=== PATIENT | male | born 1965 | race Caucasian/White ===

== ENCOUNTER 2017-04-09 09:20 | Observation (INO) | payer OTHER ==
[~2017-04-09] VITALS: Ht 190.5 cm; Wt 116.1 kg
[2017-04-09 10:34] LABS: MCH 30.5 PG (29.0-34.0); MCHC 34.2 G/DL (30.0-36.0); MCV 88.9 FL (86-99); MEAN PLAT.VOLUME 9.4 uM^3 (9.0-12.4); PLATELET COUNT 72 K/uL (156-360); RBC DIS.WIDTH-CV 17.4 % (11.8-14.6); RED BLOOD COUNT 3.71 M/uL (4.00-5.50); WHITE BLOOD COUNT 7.7 K/uL (4.1-10.2)
[2017-04-09 10:49] LABS: CHLORIDE 96 mEq/L (99-109); POTASSIUM 3.4 mEq/L (3.7-5.4); SODIUM 129 mEq/L (136-147)
[2017-04-09 10:50] LABS: GLUCOSE 114 mg/dL (70-99)
[2017-04-09 10:52] LABS: ANION GAP 8 MEQ/L (2-14)
[2017-04-09 10:55] LABS: UREA NITROGEN (BUN) 11 mg/dL (9-23)
[2017-04-09 10:57] LABS: GFR ESTIMATE (CALCULATED) > 59 mL/min/ (58.99-99999)
[2017-04-09 11:58] LABS: TROP-I INTERPRETATION NEGATIVE; TROPONIN-I < 0.01 ng/mL (0.0-0.30)
[2017-04-09 14:17] LABS: INTER. NORMALIZED RATIO 2.4
[2017-04-09 14:18] LABS: PTT 42.9 SEC (25-37)
[2017-04-09 15:58] LABS: ALKALINE PHOSPHATASE 128 IU/L (3-129)
[2017-04-09 16:01] LABS: DIRECT BILIRUBIN 2.9 mg/dL (0.0-0.3)
[2017-04-09] MEDS ORDERED: ZOFRAN ODT4 MG PO (16:22)
[2017-04-09] MEDS ORDERED: LASIX80 MG PO (16:22)
[2017-04-09] MEDS ORDERED: ALDACTONE100 MG PO (16:22)
[2017-04-09] MEDS ORDERED: TUSSIN DM LIQU118 ML PO (16:23)
[2017-04-09 16:30] LABS: TYPE OF FLUID PARACENTESIS
[2017-04-09 16:55] LABS: BODY FLUID RBC'S 180 /MM^3 (0-100); BODY FLUID WBC'S 140 /MM^3 (0-500); RED CELL AREA COUNTED 18; RED CELL DILUTION 1; WBC AREA COUNTED 18; WBC DILUTION 1; WHITE CELL RAW COUNT 252
[2017-04-09 17:06] LABS: BODY FLUID EOSINOPHILS 0 % (0-25); MONO RAW COUNT 99; MONONUCLEAR WBC'S 99 %; POLY RAW COUNT 1; POLYNUCLEAR WBC'S 1 % (0-25)
[2017-04-09 17:28] VITALS: BP 101/69
[2017-04-09 20:00] VITALS: BP 114/67
[2017-04-10 00:11] VITALS: BP 93/55
[2017-04-10 03:46] VITALS: BP 82/45
[2017-04-10 05:37] LABS: HEMATOCRIT 25.9 % (38.0-50.0); MCH 30.5 PG (29.0-34.0); MCHC 34.4 G/DL (30.0-36.0); MCV 88.7 FL (86-99); RBC DIS.WIDTH-CV 17.4 % (11.8-14.6); RBC DIS.WIDTH-SD 56.7 % (39-53); RED BLOOD COUNT 2.92 M/uL (4.00-5.50); WHITE BLOOD COUNT 4.4 K/uL (4.1-10.2)
[2017-04-10 05:44] LABS: ALKALINE PHOSPHATASE 86 IU/L (3-129); ANION GAP 4 MEQ/L (2-14); CHLORIDE 97 MEQ/L (99-109); GFR ESTIMATE (CALCULATED) > 59 mL/min/ (58.99-99999); GLUCOSE 102 mg/dL (70-99); SAMPLE HEMOLYSIS CHECK 0; SAMPLE ICTERIC CHECK 2; SAMPLE LIPEMIA CHECK 0; SODIUM 129 MEQ/L (136-147); TOTAL BILIRUBIN 6.9 MG/DL (0.0-1.0); UREA NITROGEN (BUN) 11 mg/dL (9-23)
[2017-04-10 05:45] LABS: POTASSIUM 4.1 MEQ/L (3.7-5.4)
[2017-04-10 06:22] LABS: IMM.PLATELET FRACTION 1.4 (1-7); MEAN PLAT.VOLUME 9.5 uM^3 (9.0-12.4); PLAT.SUFFICIENCY VERY DECREASED
[2017-04-10 06:42] LABS: PLATELET COUNT 47 K/uL (156-360)
[2017-04-10 07:29] VITALS: BP 103/58
[2017-04-10 11:50] VITALS: BP 123/56
[2017-04-10 19:52] VITALS: BP 97/56
[2017-04-10 23:46] VITALS: BP 101/57
[2017-04-11 04:21] VITALS: BP 99/62
[2017-04-11 07:56] VITALS: BP 102/56
[2017-04-11] MEDS ORDERED: ALDACTONE100 MG PO (11:35)
[2017-04-11] MEDS ORDERED: LASIX80 MG PO (11:36)
== END 2017-04-11 12:06 | disposition home or self-care (01) ==
LOC: EME 09:20 → EDOF 13:18 → 5WEST 13:18 → EDOF 13:18 → ENRESERV 13:19 → 5WEST 16:29
PROVIDERS: Emergency Medicine; Internal Medicine
DX: R06.09 Other forms of dyspnea (principal); R18.8 Other ascites; K74.60 Unspecified cirrhosis of liver; D63.8 Anemia in other chronic diseases classified elsewhere; E87.1 Hypo-osmolality and hyponatremia; D69.59 Other secondary thrombocytopenia; I72.8 Aneurysm of other specified arteries; Z87.19 Personal history of other diseases of the digestive system; Z87.01 Personal history of pneumonia (recurrent); M79.89 Other specified soft tissue disorders; Z83.3 Family history of diabetes mellitus; D68.9 Coagulation defect, unspecified; D73.1 Hypersplenism; E87.6 Hypokalemia; J90 Pleural effusion, not elsewhere classified; Z88.5 Allergy status to narcotic agent
CPT/HCPCS: 49083; 71020; 80048; 80053; 80076; 82140; 83880; 84484; 85027; 85610; 85730; 87070; 87075; 87205; 89051; 93005; G0378; J2405; P9047; S0028

== ENCOUNTER 2017-04-14 08:25 | Emergency (ER) | payer SELFPAY ==
[~2017-04-14] VITALS: Ht 190.5 cm; Wt 108.2 kg
[~2017-04-14 08:25] MED LIST changes: -CIPRO500 MG PO; -PEPCID40 MG PO; -PROMETHAZINE HC25 M1 PO
[2017-04-14 11:19] LABS: BASOPHIL (%) 0.5 % (0-1); EOSINOPHIL (%) 1.2 % (0-5); EOSINOPHIL COUNT 0.1 K/uL (0-0.3); HEMATOCRIT 31.3 % (38.0-50.0); HEMOGLOBIN 10.8 G/DL (12.5-16.6); IMMATURE GRANULOCYTE (%) 0.5 % (0.0-0.7); LYMPHOCYTE (%) 11.1 % (15-42); LYMPHOCYTE COUNT 0.7 K/uL (1.0-2.8); MCHC 34.5 G/DL (30.0-36.0); MCV 89.9 FL (86-99); MONOCYTE (%) 13.6 % (3-12); MONOCYTE COUNT 0.8 K/uL (0-0.8); NEUTROPHIL (%) 73.1 % (45-76); NEUTROPHIL COUNT 4.3 K/uL (1.8-6.4); RBC DIS.WIDTH-CV 18.6 % (11.8-14.6); RBC DIS.WIDTH-SD 60.2 % (39-53); RED BLOOD COUNT 3.48 M/uL (4.00-5.50); WHITE BLOOD COUNT 5.9 K/uL (4.1-10.2)
[2017-04-14 11:21] LABS: PLATELET COUNT 63 K/uL (156-360)
[2017-04-14 11:25] LABS: INTER. NORMALIZED RATIO 2.1
[2017-04-14 11:27] LABS: PTT 42.4 SEC (25-37)
[2017-04-14 11:31] LABS: ALBUMIN 2.6 g/dL (3.2-4.8); CHLORIDE 98 mEq/L (99-109); SODIUM 130 mEq/L (136-147)
[2017-04-14 11:33] LABS: GLUCOSE 98 mg/dL (70-99); TOTAL PROTEIN 5.9 g/dL (6.4-8.3)
[2017-04-14 11:35] LABS: TOTAL BILIRUBIN 7.1 mg/dL (0.0-1.0)
[2017-04-14 11:37] LABS: ALKALINE PHOSPHATASE 126 IU/L (3-129); CREATININE 0.8 mg/dL (0.6-1.3); GFR ESTIMATE (CALCULATED) > 59 mL/min/ (58.99-99999)
[2017-04-14 11:38] LABS: UREA NITROGEN (BUN) 15 mg/dL (9-23)
[2017-04-14 11:39] LABS: AST (GOT) 81 IU/L (2-34)
[2017-04-14 11:40] LABS: ALT (GPT) 36 IU/L (3-49); LIPASE 21 U/L (1.0-51.0)
[2017-04-14 11:55] LABS: POTASSIUM 5.6 mEq/L (3.7-5.4)
[2017-04-14] MEDS ORDERED: CIPRO500 MG PO (13:16)
[2017-04-14] MEDS ORDERED: PROMETHAZINE HC25 M1 PO (13:20)
[2017-04-14 13:43] VITALS: BP 111/71
== END 2017-04-14 13:46 | disposition home or self-care (01) ==
LOC: EME → EDBD 08:25 → EME 13:46
PROVIDERS: Emergency Medicine
DX: R11.2 Nausea with vomiting, unspecified (principal); R18.8 Other ascites; E87.5 Hyperkalemia; K59.00 Constipation, unspecified; R00.0 Tachycardia, unspecified; K74.60 Unspecified cirrhosis of liver
CPT/HCPCS: 71020; 80053; 83690; 85025; 85610; 85730; 93005; 99281; 99285; J2405

== ENCOUNTER → 2017-04-14 | Outpatient (CLI) | payer OTHER ==
[~2017-04-14] MED LIST: ALDACTONE100 MG PO; CIPRO500 MG PO; LASIX80 MG PO; PEPCID40 MG PO; PROMETHAZINE HC25 M1 PO; TUSSIN DM LIQU118 ML PO; ZOFRAN ODT4 MG PO
== END | disposition home or self-care (01) ==
LOC: RAD 13:15
PROC: 0W9G3ZZ Drainage of Peritoneal Cavity, Percutaneous Approach (ICD-10-PCS; principal; 2017-04-14)
DX: R18.8 Other ascites (principal)
CPT/HCPCS: 49083

== ENCOUNTER 2017-04-20 12:34 | Emergency (ER) | payer OTHER ==
[~2017-04-20] VITALS: Ht 190.5 cm; Wt 110.0 kg
[~2017-04-20 12:34] MED LIST changes: +CIPRO500 MG PO; +PROMETHAZINE HC25 M1 PO
[2017-04-20 14:40] LABS: HEMOGLOBIN 11.4 G/DL (12.5-16.6); MCH 31.7 PG (29.0-34.0); MCHC 34.5 G/DL (30.0-36.0); MCV 91.7 FL (86-99); RBC DIS.WIDTH-CV 18.3 % (11.8-14.6); WHITE BLOOD COUNT 8.7 K/uL (4.1-10.2)
[2017-04-20 14:42] LABS: PLATELET COUNT 82 K/uL (156-360)
[2017-04-20 14:51] LABS: INTER. NORMALIZED RATIO 2.1
[2017-04-20 14:53] LABS: PTT 40.4 SEC (25-37)
[2017-04-20 14:54] LABS: CHLORIDE 93 mEq/L (99-109); SODIUM 127 mEq/L (136-147)
[2017-04-20 14:55] LABS: GLUCOSE 145 mg/dL (70-99)
[2017-04-20 14:59] LABS: CREATININE 0.8 mg/dL (0.6-1.3); GFR ESTIMATE (CALCULATED) > 59 mL/min/ (58.99-99999); POTASSIUM 3.7 mEq/L (3.7-5.4)
[2017-04-20 15:00] LABS: UREA NITROGEN (BUN) 17 mg/dL (9-23)
[2017-04-20 19:35] VITALS: BP 102/62
== END 2017-04-20 19:42 | disposition home or self-care (01) ==
LOC: EME 12:34
PROVIDERS: Nurse Practitioner Family
PROC: 0W9G3ZZ Drainage of Peritoneal Cavity, Percutaneous Approach (ICD-10-PCS; principal; 2017-04-20)
DX: R18.8 Other ascites (principal); D69.6 Thrombocytopenia, unspecified; E87.1 Hypo-osmolality and hyponatremia; K72.90 Hepatic failure, unspecified without coma; K74.60 Unspecified cirrhosis of liver; J90 Pleural effusion, not elsewhere classified; Z86.73 Personal history of transient ischemic attack (TIA), and cerebral infarction without residual deficits; Z88.5 Allergy status to narcotic agent
CPT/HCPCS: 49083; 71046; 80048; 85027; 85610; 85730; 93005; 99281; 99285

== ENCOUNTER 2017-04-23 22:59 | Emergency (ER) | payer SELFPAY ==
[~2017-04-23] VITALS: Ht 190.5 cm; Wt 106.6 kg
[2017-04-24 00:01] LABS: BASOPHIL (%) 0.6 % (0-1); EOSINOPHIL (%) 1.1 % (0-5); EOSINOPHIL COUNT 0.1 K/uL (0-0.3); HEMATOCRIT 30.5 % (38.0-50.0); HEMOGLOBIN 10.3 G/DL (12.5-16.6); IMMATURE GRANULOCYTE (%) 0.7 % (0.0-0.7); LYMPHOCYTE (%) 10.5 % (15-42); LYMPHOCYTE COUNT 0.8 K/uL (1.0-2.8); MCH 30.7 PG (29.0-34.0); MCHC 33.8 G/DL (30.0-36.0); MONOCYTE (%) 14.1 % (3-12); NEUTROPHIL COUNT 5.3 K/uL (1.8-6.4); PLATELET COUNT 67 K/uL (156-360); RBC DIS.WIDTH-CV 18.9 % (11.8-14.6); RBC DIS.WIDTH-SD 63.3 % (39-53); RED BLOOD COUNT 3.35 M/uL (4.00-5.50); WHITE BLOOD COUNT 7.2 K/uL (4.1-10.2)
[2017-04-24 00:09] LABS: INTER. NORMALIZED RATIO 2.3
[2017-04-24 00:13] LABS: ALBUMIN 2.2 g/dL (3.2-4.8); CHLORIDE 96 mEq/L (99-109); POTASSIUM 3.5 mEq/L (3.7-5.4); SODIUM 128 mEq/L (136-147)
[2017-04-24 00:15] LABS: GLUCOSE 141 mg/dL (70-99)
[2017-04-24 00:16] LABS: TOTAL PROTEIN 4.9 g/dL (6.4-8.3)
[2017-04-24 00:19] LABS: ALKALINE PHOSPHATASE 139 IU/L (3-129); CREATININE 0.8 mg/dL (0.6-1.3); GFR ESTIMATE (CALCULATED) > 59 mL/min/ (58.99-99999)
[2017-04-24 00:20] LABS: UREA NITROGEN (BUN) 18 mg/dL (9-23)
[2017-04-24 00:21] LABS: AST (GOT) 53 IU/L (2-34)
[2017-04-24 00:22] LABS: ALT (GPT) 31 IU/L (3-49)
[2017-04-24 00:24] LABS: TROP-I INTERPRETATION NEGATIVE; TROPONIN-I < 0.01 ng/mL (0.0-0.30)
[2017-04-24] MEDS ORDERED: PEPCID40 MG PO (01:43)
[2017-04-24 02:45] VITALS: BP 98/67
== END 2017-04-24 02:45 | disposition home or self-care (01) ==
LOC: EME → EDBD 22:59 → EME 22:59
PROVIDERS: Emergency Medicine Emergency Medical Services
DX: R07.89 Other chest pain (principal); K74.60 Unspecified cirrhosis of liver; R18.8 Other ascites; Z86.73 Personal history of transient ischemic attack (TIA), and cerebral infarction without residual deficits; Z88.5 Allergy status to narcotic agent
CPT/HCPCS: 71046; 80053; 84484; 85025; 85610; 93005; 99281; 99285

== ENCOUNTER 2017-04-26 12:13 | Emergency (ER) | payer OTHER ==
[~2017-04-26] VITALS: Ht 190.5 cm; Wt 110.9 kg
[~2017-04-26 12:13] MED LIST changes: +PEPCID40 MG PO
[2017-04-26 12:59] LABS: BASOPHIL (%) 0.8 % (0-1); BASOPHIL COUNT 0.1 K/uL (0-0.1); EOSINOPHIL (%) 1.1 % (0-5); EOSINOPHIL COUNT 0.1 K/uL (0-0.3); HEMATOCRIT 32.6 % (38.0-50.0); HEMOGLOBIN 11.6 G/DL (12.5-16.6); IMMATURE GRANULOCYTE (%) 0.9 % (0.0-0.7); LYMPHOCYTE (%) 10.7 % (15-42); MCHC 35.6 G/DL (30.0-36.0); MCV 90.1 FL (86-99); MONOCYTE COUNT 1.4 K/uL (0-0.8); NEUTROPHIL (%) 70.5 % (45-76); NEUTROPHIL COUNT 6.2 K/uL (1.8-6.4); PLATELET COUNT 81 K/uL (156-360); RBC DIS.WIDTH-CV 18.7 % (11.8-14.6); RBC DIS.WIDTH-SD 61.5 % (39-53); RED BLOOD COUNT 3.62 M/uL (4.00-5.50); WHITE BLOOD COUNT 8.9 K/uL (4.1-10.2)
[2017-04-26 13:04] LABS: INTER. NORMALIZED RATIO 1.9
[2017-04-26 13:07] LABS: PTT 37.2 SEC (25-37)
[2017-04-26 13:09] LABS: ALBUMIN 2.5 g/dL (3.2-4.8); CHLORIDE 95 mEq/L (99-109); POTASSIUM 3.6 mEq/L (3.7-5.4); SODIUM 128 mEq/L (136-147)
[2017-04-26 13:10] LABS: MAGNESIUM 1.7 mg/dL (1.3-2.7)
[2017-04-26 13:12] LABS: GLUCOSE 118 mg/dL (70-99); TOTAL PROTEIN 5.5 g/dL (6.4-8.3)
[2017-04-26 13:14] LABS: TOTAL BILIRUBIN 5.7 mg/dL (0.0-1.0)
[2017-04-26 13:15] LABS: SERUM ETHYL ALCOHOL < 10 mg/dL
[2017-04-26 13:16] LABS: ALKALINE PHOSPHATASE 220 IU/L (3-129); CREATININE 0.8 mg/dL (0.6-1.3); GFR ESTIMATE (CALCULATED) > 59 mL/min/ (58.99-99999)
[2017-04-26 13:17] LABS: AST (GOT) 64 IU/L (2-34); UREA NITROGEN (BUN) 17 mg/dL (9-23)
[2017-04-26 13:19] LABS: ALT (GPT) 36 IU/L (3-49)
[2017-04-26 22:21] VITALS: BP 101/47
== END 2017-04-26 22:23 | disposition home or self-care (01) ==
LOC: EME 12:13
PROVIDERS: Emergency Medicine
PROC: 0W9G3ZZ Drainage of Peritoneal Cavity, Percutaneous Approach (ICD-10-PCS; principal; 2017-04-26)
DX: R18.8 Other ascites (principal); R06.00 Dyspnea, unspecified; K74.60 Unspecified cirrhosis of liver; R11.0 Nausea; R00.0 Tachycardia, unspecified; E87.1 Hypo-osmolality and hyponatremia
CPT/HCPCS: 49083; 80053; 81003; 83735; 85025; 85610; 85730; 99281; 99285; G0480; P9047

== ENCOUNTER → 2017-05-01 | Outpatient (CLI) | payer OTHER ==
[~2017-05-01] MED LIST changes: +OMEPRAZOLE20 MG PO
== END | disposition home or self-care (01) ==
LOC: RAD 07:11
PROC: 0W9G3ZZ Drainage of Peritoneal Cavity, Percutaneous Approach (ICD-10-PCS; principal; 2017-05-01)
DX: R18.8 Other ascites (principal); R06.02 Shortness of breath
CPT/HCPCS: 49083

== ENCOUNTER 2017-05-05 15:47 | Observation (INO) | payer OTHER ==
[~2017-05-05] VITALS: Ht 190.5 cm; Wt 108.4 kg
[~2017-05-05 15:47] MED LIST changes: -OMEPRAZOLE20 MG PO
[2017-05-05 16:46] LABS: HEMOGLOBIN 11.9 G/DL (12.5-16.6); MCH 32.9 PG (29.0-34.0); MCHC 36.1 G/DL (30.0-36.0); MCV 91.2 FL (86-99); PLATELET COUNT 82 K/uL (156-360); RBC DIS.WIDTH-SD 56.8 % (39-53); RED BLOOD COUNT 3.62 M/uL (4.00-5.50); WHITE BLOOD COUNT 9.7 K/uL (4.1-10.2)
[2017-05-05 16:58] LABS: INTER. NORMALIZED RATIO 1.9
[2017-05-05 17:00] LABS: ALBUMIN 2.7 g/dL (3.2-4.8); CHLORIDE 94 mEq/L (99-109); POTASSIUM 4.3 mEq/L (3.7-5.4); SODIUM 123 mEq/L (136-147)
[2017-05-05 17:01] LABS: PTT 36.6 SEC (25-37)
[2017-05-05 17:03] LABS: GLUCOSE 114 mg/dL (70-99); TOTAL PROTEIN 5.7 g/dL (6.4-8.3)
[2017-05-05 17:04] LABS: TOTAL BILIRUBIN 6.3 mg/dL (0.0-1.0)
[2017-05-05 17:06] LABS: ALKALINE PHOSPHATASE 147 IU/L (3-129); CREATININE 0.8 mg/dL (0.6-1.3); GFR ESTIMATE (CALCULATED) > 59 mL/min/ (58.99-99999)
[2017-05-05 17:07] LABS: UREA NITROGEN (BUN) 17 mg/dL (9-23)
[2017-05-05 17:08] LABS: AST (GOT) 58 IU/L (2-34)
[2017-05-05 17:09] LABS: ALT (GPT) 40 IU/L (3-49)
[2017-05-05] MEDS ORDERED: OMEPRAZOLE20 MG PO (19:42)
[2017-05-05 22:17] VITALS: BP 104/58
[2017-05-06 03:45] VITALS: BP 98/58
[2017-05-06 07:07] LABS: BASOPHIL (%) 1.2 % (0-1); BASOPHIL COUNT 0.1 K/uL (0-0.1); EOSINOPHIL (%) 2.4 % (0-5); EOSINOPHIL COUNT 0.2 K/uL (0-0.3); HEMATOCRIT 27.9 % (38.0-50.0); HEMOGLOBIN 9.9 G/DL (12.5-16.6); IMMATURE GRANULOCYTE (%) 1.2 % (0.0-0.7); LYMPHOCYTE (%) 14.6 % (15-42); MCH 32.6 PG (29.0-34.0); MCHC 35.5 G/DL (30.0-36.0); MCV 91.8 FL (86-99); MONOCYTE (%) 16.7 % (3-12); MONOCYTE COUNT 1.1 K/uL (0-0.8); NEUTROPHIL (%) 63.9 % (45-76); NEUTROPHIL COUNT 4.3 K/uL (1.8-6.4); PLATELET COUNT 58 K/uL (156-360); RBC DIS.WIDTH-CV 17.2 % (11.8-14.6); RBC DIS.WIDTH-SD 58.3 % (39-53); RED BLOOD COUNT 3.04 M/uL (4.00-5.50); WHITE BLOOD COUNT 6.7 K/uL (4.1-10.2)
[2017-05-06 07:27] LABS: ALKALINE PHOSPHATASE 105 IU/L (3-129); ALT (GPT) 26 IU/L (3-49); AST (GOT) 41 IU/L (2-34); CHLORIDE 95 MEQ/L (99-109); CREATININE 0.8 MG/DL (0.6-1.3); GFR ESTIMATE (CALCULATED) > 59 mL/min/ (58.99-99999); GLUCOSE 113 mg/dL (70-99); POTASSIUM 4.3 MEQ/L (3.7-5.4); SODIUM 125 MEQ/L (136-147); TOTAL BILIRUBIN 5.2 MG/DL (0.0-1.0); TOTAL PROTEIN 4.5 G/DL (6.4-8.3); UREA NITROGEN (BUN) 17 mg/dL (9-23)
[2017-05-06 07:49] VITALS: BP 102/62
[2017-05-06 14:04] VITALS: BP 95/54
[2017-05-06 16:00] VITALS: BP 110/58
[2017-05-06 17:11] LABS: TYPE OF FLUID PARACENTESIS
[2017-05-06 17:13] LABS: ABSOLUTE RETICULOCYTE CT. 0.1 M/uL (0.02-0.08); IMM.RETIC FRACTION 5.1 % (3-19); RETIC HGB EQUIVALENT 37.7 (28-36); RETICULOCYTE COUNT 3.6 % (0.5-1.8)
[2017-05-06 17:30] LABS: APPEARANCE SL. HAZY-YELLOW; BODY FLUID RBC'S < 1000 /MM^3 (0-100); BODY FLUID WBC'S 146 /MM^3 (0-500)
[2017-05-06] MEDS ORDERED: CHOLESTYRAMINE P4 GM PO (17:54)
[2017-05-06 18:03] LABS: IRON 94 MCG/DL (35-150); TRANSFERRIN (TIBC) 141.4 mg/dL (215-380); TRANSFERRIN SATUR. 66 % (20-55)
[2017-05-06 18:12] LABS: FERRITIN 97 NG/ML (22-322)
[2017-05-06 18:13] LABS: BODY FLUID EOSINOPHILS 0 % (0-25); MONONUCLEAR WBC'S 94 %; POLYNUCLEAR WBC'S 6 % (0-25)
[2017-05-06] MEDS ORDERED: ALDACTONE100 MG PO (19:15)
[2017-05-06 21:17] LABS: BODY FLUID AMYLASE 12 U/L
[2017-05-06 21:47] LABS: BODY FLUID LDH 25 IU/L; BODY FLUID PROTEIN < 3.0 G/DL
== END 2017-05-06 21:19 | disposition home or self-care (01) ==
LOC: EME 15:47 → EDOF 20:32 → 5WEST 20:32 → EDOF 20:32 → ENRESERV 20:36 → 5WEST 21:38
PROVIDERS: Physician Assistant; Specialist
PROC: 0W9G3ZZ Drainage of Peritoneal Cavity, Percutaneous Approach (ICD-10-PCS; principal; 2017-05-06)
DX: K74.69 Other cirrhosis of liver (principal); R18.8 Other ascites; E87.1 Hypo-osmolality and hyponatremia; Z87.19 Personal history of other diseases of the digestive system; D64.9 Anemia, unspecified; D69.6 Thrombocytopenia, unspecified; L29.9 Pruritus, unspecified; K42.9 Umbilical hernia without obstruction or gangrene; I72.8 Aneurysm of other specified arteries; Z86.73 Personal history of transient ischemic attack (TIA), and cerebral infarction without residual deficits; Z83.3 Family history of diabetes mellitus; Z88.5 Allergy status to narcotic agent
CPT/HCPCS: 49083; 71046; 80053; 82040; 82150 91; 82607; 82728; 83540; 83615 91; 84157; 84295; 84466; 84630 90; 85025; 85027; 85046; 85610; 85730; 87205; 89051; 99281; 99285; G0378; J2405; P9045

== ENCOUNTER 2017-05-14 14:13 | Emergency (ER) | payer OTHER ==
[~2017-05-14] VITALS: Ht 190.5 cm; Wt 100.4 kg
[~2017-05-14 14:13] MED LIST changes: -OXYCODONE HCL5 MG PO
[2017-05-14 15:04] LABS: HEMATOCRIT 31.7 % (38.0-50.0); HEMOGLOBIN 11.1 G/DL (12.5-16.6); MCH 32.6 PG (29.0-34.0); MCV 93.2 FL (86-99); PLATELET COUNT 72 K/uL (156-360); RBC DIS.WIDTH-CV 16.7 % (11.8-14.6); RBC DIS.WIDTH-SD 56.7 % (39-53)
[2017-05-14 15:15] LABS: ALBUMIN 2.6 g/dL (3.2-4.8); CHLORIDE 93 mEq/L (99-109); POTASSIUM 3.7 mEq/L (3.7-5.4); SODIUM 126 mEq/L (136-147)
[2017-05-14 15:17] LABS: GLUCOSE 171 mg/dL (70-99)
[2017-05-14 15:18] LABS: TOTAL PROTEIN 5.5 g/dL (6.4-8.3)
[2017-05-14 15:19] LABS: TOTAL BILIRUBIN 5.8 mg/dL (0.0-1.0)
[2017-05-14 15:21] LABS: ALKALINE PHOSPHATASE 132 IU/L (3-129); CREATININE 0.9 mg/dL (0.6-1.3); GFR ESTIMATE (CALCULATED) > 59 mL/min/ (58.99-99999)
[2017-05-14 15:22] LABS: UREA NITROGEN (BUN) 21 mg/dL (9-23)
[2017-05-14 15:23] LABS: AST (GOT) 54 IU/L (2-34)
[2017-05-14 15:24] LABS: ALT (GPT) 37 IU/L (3-49)
[2017-05-14 16:05] LABS: TROP-I INTERPRETATION NEGATIVE; TROPONIN-I < 0.01 ng/mL (0.0-0.30)
[2017-05-14 16:33] LABS: LIPASE 44 U/L (1.0-51.0)
[2017-05-14 17:14] LABS: APPEARANCE SL.HAZY ((CLEAR)); BILIRUBIN SMALL; BLOOD NEGATIVE; COLOR AMBER ((YELLOW)); GLUCOSE (STRIP) NEGATIVE; KETONES NEGATIVE; LEUKOCYTES NEGATIVE; NITRITE NEGATIVE; PROTEIN (STRIP) NEGATIVE
[2017-05-14 17:31] LABS: BACTERIA RARE /HPF; CALCIUM OXALATE CRYSTALS 1+ /HPF; EPITHELIAL CELLS RARE /HPF; HYALINE CASTS 0-5 /LPF; MUCUS 4+ /LPF; RED BLOOD CELLS 0-5 /HPF (0-5); UCUL ADDED? NO; WHITE BLOOD CELLS 0-5 /HPF (0-5)
[2017-05-14] MEDS ORDERED: OXYCODONE HCL5 MG PO (19:00)
[2017-05-14 21:25] VITALS: BP 104/66
== END 2017-05-14 21:54 | disposition home or self-care (01) ==
LOC: EME 14:13
DX: R10.13 Epigastric pain (principal); K74.60 Unspecified cirrhosis of liver; E87.1 Hypo-osmolality and hyponatremia; R18.8 Other ascites; K21.9 Gastro-esophageal reflux disease without esophagitis; F32.9 Major depressive disorder, single episode, unspecified; Z86.73 Personal history of transient ischemic attack (TIA), and cerebral infarction without residual deficits; Z88.5 Allergy status to narcotic agent
CPT/HCPCS: 71045; 74177; 80053; 81003; 83690; 84484; 85027; 93005; 99281; 99285; J3010; J7040

== ENCOUNTER → 2017-05-14 | Outpatient (CLI) | payer OTHER ==
[~2017-05-14] MED LIST changes: +CHOLESTYRAMINE P4 GM PO; +OMEPRAZOLE20 MG PO; +OXYCODONE HCL5 MG PO; +PROTONIX40 MG PO
[2017-05-14 13:19] LABS: TYPE OF FLUID PARACENTESIS
[2017-05-14 14:29] LABS: APPEARANCE CLEAR-YELLOW; BODY FLUID EOSINOPHILS 0 % (0-25); BODY FLUID RBC'S < 1000 /MM^3 (0-100); BODY FLUID WBC'S 106 /MM^3 (0-500); MONONUCLEAR WBC'S 94 %; POLYNUCLEAR WBC'S 6 % (0-25)
== END | disposition home or self-care (01) ==
LOC: RAD 10:54
PROVIDERS: Radiology Diagnostic Radiology
PROC: 0W9G3ZZ Drainage of Peritoneal Cavity, Percutaneous Approach (ICD-10-PCS; principal; 2017-05-14)
DX: R18.8 Other ascites (principal); K74.60 Unspecified cirrhosis of liver
CPT/HCPCS: 49083; 88108; 89051

== ENCOUNTER 2017-05-19 16:34 | Emergency (ER) | payer OTHER ==
[~2017-05-19] VITALS: Ht 190.5 cm; Wt 107.2 kg
[~2017-05-19 16:34] MED LIST changes: +OXYCODONE HCL5 MG PO
[2017-05-19 20:18] VITALS: BP 100/73
[2017-05-20] MEDS ORDERED: ALDACTONE100 MG PO (08:26)
[2017-05-20] MEDS ORDERED: PROTONIX40 MG PO (08:27)
[2017-05-20] MEDS ORDERED: FUROSEMIDE80 MG PO (08:27)
== END 2017-05-19 20:18 | disposition home or self-care (01) ==
LOC: EME 16:34
DX: R06.02 Shortness of breath (principal); K74.60 Unspecified cirrhosis of liver; J90 Pleural effusion, not elsewhere classified
CPT/HCPCS: 71046; 80048; 85027; 93005; 99281; 99284

== ENCOUNTER → 2017-05-20 | Outpatient (CLI) | payer OTHER ==
[~2017-05-20] MED LIST changes: +FUROSEMIDE80 MG PO
== END | disposition home or self-care (01) ==
LOC: RAD 07:48
PROC: 0W9G3ZZ Drainage of Peritoneal Cavity, Percutaneous Approach (ICD-10-PCS; principal; 2017-05-20)
DX: R18.8 Other ascites (principal); K74.60 Unspecified cirrhosis of liver
CPT/HCPCS: 49083; P9047

== ENCOUNTER → 2017-05-27 | Outpatient (CLI) | payer OTHER | END | disposition home or self-care (01) | LOC: RAD 07:36 | PROC: 0W9G3ZZ Drainage of Peritoneal Cavity, Percutaneous Approach (ICD-10-PCS; principal; 2017-05-27) | DX: R18.8 Other ascites (principal); K74.60 Unspecified cirrhosis of liver | CPT/HCPCS: 49083; P9047 ==

== ENCOUNTER 2017-05-31 06:13 | Emergency (ER) | payer OTHER ==
[~2017-05-31] VITALS: Ht 190.5 cm; Wt 110.0 kg
[2017-05-31 08:06] LABS: HEMATOCRIT 28.6 % (38.0-50.0); HEMOGLOBIN 9.9 G/DL (12.5-16.6); MCHC 34.6 G/DL (30.0-36.0); MCV 95.3 FL (86-99); RBC DIS.WIDTH-CV 15.9 % (11.8-14.6); RBC DIS.WIDTH-SD 54.4 % (39-53); WHITE BLOOD COUNT 5.5 K/uL (4.1-10.2)
[2017-05-31 08:09] LABS: PTT 30.8 SEC (25-37)
[2017-05-31 08:14] LABS: CHLORIDE 101 mEq/L (99-109); POTASSIUM 4.6 mEq/L (3.7-5.4); SODIUM 129 mEq/L (136-147)
[2017-05-31 08:15] LABS: GLUCOSE 103 mg/dL (70-99)
[2017-05-31 08:19] LABS: CREATININE 0.7 mg/dL (0.6-1.3); GFR ESTIMATE (CALCULATED) > 59 mL/min/ (58.99-99999)
[2017-05-31 08:20] LABS: UREA NITROGEN (BUN) 12 mg/dL (9-23)
[2017-05-31 08:47] LABS: IMM.PLATELET FRACTION 1.2 (1-7); PLAT.SUFFICIENCY DECREASED
[2017-05-31 09:17] LABS: PLATELET COUNT 41 K/uL (156-360)
[2017-05-31 17:15] VITALS: BP 108/64
[2017-06-03] MEDS ORDERED: ZOFRAN4 MG PO (13:13)
== END 2017-05-31 17:15 | disposition home or self-care (01) ==
LOC: EME 06:13
PROVIDERS: Emergency Medicine
PROC: 0W9G3ZZ Drainage of Peritoneal Cavity, Percutaneous Approach (ICD-10-PCS; principal; 2017-05-31)
DX: R18.8 Other ascites (principal); R06.00 Dyspnea, unspecified; R10.9 Unspecified abdominal pain; K74.60 Unspecified cirrhosis of liver; K21.9 Gastro-esophageal reflux disease without esophagitis; F32.9 Major depressive disorder, single episode, unspecified; Z86.73 Personal history of transient ischemic attack (TIA), and cerebral infarction without residual deficits; Z88.5 Allergy status to narcotic agent
CPT/HCPCS: 49083; 80048; 85027; 85610; 85730; 99281; 99285

== ENCOUNTER → 2017-06-03 | Outpatient (CLI) | payer OTHER ==
[~2017-06-03] MED LIST changes: +ZOFRAN4 MG PO
== END | disposition home or self-care (01) ==
LOC: RAD 12:50
PROC: 0W9G3ZZ Drainage of Peritoneal Cavity, Percutaneous Approach (ICD-10-PCS; principal; 2017-06-03)
DX: R18.8 Other ascites (principal); K74.60 Unspecified cirrhosis of liver; K92.1 Melena
CPT/HCPCS: 49083

== ENCOUNTER → 2017-06-08 | Outpatient (CLI) | payer OTHER | END | disposition home or self-care (01) | LOC: RAD 07:24 | PROC: 0W9G3ZZ Drainage of Peritoneal Cavity, Percutaneous Approach (ICD-10-PCS; principal; 2017-06-08) | DX: R18.8 Other ascites (principal); K74.60 Unspecified cirrhosis of liver | CPT/HCPCS: 49083; J2405; P9047 ==

== ENCOUNTER → 2017-06-11 | Outpatient (CLI) | payer OTHER | END | disposition home or self-care (01) | LOC: RAD 06-10 13:30 | PROC: 0W9G3ZZ Drainage of Peritoneal Cavity, Percutaneous Approach (ICD-10-PCS; principal; 2017-06-11) | DX: R18.8 Other ascites (principal) | CPT/HCPCS: 49083 ==

== ENCOUNTER → 2017-06-15 | Outpatient (CLI) | payer OTHER ==
[2017-06-15 08:39] LABS: TYPE OF FLUID PERITONEAL
[2017-06-15 09:34] LABS: APPEARANCE CLEAR-YELLOW; BODY FLUID EOSINOPHILS 0 % (0-25); BODY FLUID RBC'S < 1000 /MM^3 (0-100); BODY FLUID WBC'S 131 /MM^3 (0-500); MONONUCLEAR WBC'S 95 %; POLYNUCLEAR WBC'S 5 % (0-25)
== END | disposition home or self-care (01) ==
LOC: RAD 07:34
PROVIDERS: Specialist
PROC: 0W9G3ZZ Drainage of Peritoneal Cavity, Percutaneous Approach (ICD-10-PCS; principal; 2017-06-15)
DX: R18.8 Other ascites (principal); K74.60 Unspecified cirrhosis of liver
CPT/HCPCS: 49083; 89051

== ENCOUNTER → 2017-06-18 | Outpatient (CLI) | payer OTHER | END | disposition home or self-care (01) | LOC: RAD 12:29 | PROC: 0W9G3ZZ Drainage of Peritoneal Cavity, Percutaneous Approach (ICD-10-PCS; principal; 2017-06-18) | DX: R18.8 Other ascites (principal) | CPT/HCPCS: 49083; P9047 ==

== ENCOUNTER → 2017-06-23 | Outpatient (CLI) | payer OTHER ==
[~2017-06-23] MED LIST changes: +MEPHYTON5 MG PO
== END | disposition home or self-care (01) ==
LOC: RAD 06-22 08:30
PROC: 0W9G3ZZ Drainage of Peritoneal Cavity, Percutaneous Approach (ICD-10-PCS; principal; 2017-06-23)
DX: R18.8 Other ascites (principal); K74.60 Unspecified cirrhosis of liver
CPT/HCPCS: 49083; P9047

== ENCOUNTER → 2017-06-26 | Outpatient (CLI) | payer OTHER ==
[~2017-06-26] VITALS: Ht 190.5 cm; Wt 105.0 kg
== END | disposition home or self-care (01) ==
LOC: RAD 07:25
PROC: 0W9G3ZZ Drainage of Peritoneal Cavity, Percutaneous Approach (ICD-10-PCS; principal; 2017-06-26)
DX: R18.8 Other ascites (principal); K74.60 Unspecified cirrhosis of liver
CPT/HCPCS: 49083

== ENCOUNTER → 2017-06-29 | Outpatient (CLI) | payer OTHER | END | disposition home or self-care (01) | LOC: RAD 12:39 | PROC: 0W9G3ZZ Drainage of Peritoneal Cavity, Percutaneous Approach (ICD-10-PCS; principal; 2017-06-29) | DX: R18.8 Other ascites (principal) | CPT/HCPCS: 49083; P9047 ==

== ENCOUNTER → 2017-07-02 | Outpatient (CLI) | payer OTHER | END | disposition home or self-care (01) | LOC: RAD 12:35 | PROC: 0W9G3ZZ Drainage of Peritoneal Cavity, Percutaneous Approach (ICD-10-PCS; principal; 2017-07-02) | DX: R18.8 Other ascites (principal); K74.60 Unspecified cirrhosis of liver | CPT/HCPCS: 49083; P9047 ==

== ENCOUNTER → 2017-07-06 | Outpatient (CLI) | payer OTHER | END | disposition home or self-care (01) | LOC: RAD 08:07 | PROC: 0W9G3ZZ Drainage of Peritoneal Cavity, Percutaneous Approach (ICD-10-PCS; principal; 2017-07-06) | DX: R18.8 Other ascites (principal) | CPT/HCPCS: 49083 ==

== ENCOUNTER → 2017-07-09 | Outpatient (CLI) | payer OTHER ==
[2017-07-09 13:22] LABS: TYPE OF FLUID PARACENTESIS
[2017-07-09 14:25] LABS: APPEARANCE SL. HAZY-YELLOW; BODY FLUID RBC'S 2000 /MM^3 (0-100); BODY FLUID WBC'S 139 /MM^3 (0-500)
[2017-07-09 14:29] LABS: BODY FLUID EOSINOPHILS 2 % (0-25); MONONUCLEAR WBC'S 88 %; POLYNUCLEAR WBC'S 10 % (0-25)
== END | disposition home or self-care (01) ==
LOC: RAD 12:35
PROVIDERS: Specialist
PROC: 0W9G3ZZ Drainage of Peritoneal Cavity, Percutaneous Approach (ICD-10-PCS; principal; 2017-07-09)
DX: R18.8 Other ascites (principal)
CPT/HCPCS: 49083; 88108; 89051

== ENCOUNTER → 2017-07-13 | Outpatient (CLI) | payer OTHER | END | disposition home or self-care (01) | LOC: RAD 07:38 | PROC: 0W9G3ZZ Drainage of Peritoneal Cavity, Percutaneous Approach (ICD-10-PCS; principal; 2017-07-13) | DX: R18.8 Other ascites (principal); K74.69 Other cirrhosis of liver; Z76.82 Awaiting organ transplant status | CPT/HCPCS: 49083; P9047 ==

== ENCOUNTER → 2017-07-17 | Outpatient (CLI) | payer OTHER | END | disposition home or self-care (01) | LOC: RAD 07-16 13:15 | PROC: 0W9G3ZZ Drainage of Peritoneal Cavity, Percutaneous Approach (ICD-10-PCS; principal; 2017-07-17) | DX: R18.8 Other ascites (principal); K74.60 Unspecified cirrhosis of liver | CPT/HCPCS: 49083 ==

== ENCOUNTER → 2017-07-21 | Outpatient (CLI) | payer OTHER | END | disposition home or self-care (01) | LOC: RAD 07:43 | PROC: 0W9G3ZZ Drainage of Peritoneal Cavity, Percutaneous Approach (ICD-10-PCS; principal; 2017-07-21) | DX: R18.8 Other ascites (principal); K74.60 Unspecified cirrhosis of liver | CPT/HCPCS: 49083; P9047 ==

== ENCOUNTER → 2017-07-24 | Outpatient (CLI) | payer OTHER | END | disposition home or self-care (01) | LOC: RAD 07:51 | PROC: 0W9G3ZZ Drainage of Peritoneal Cavity, Percutaneous Approach (ICD-10-PCS; principal; 2017-07-24) | DX: R18.8 Other ascites (principal) | CPT/HCPCS: 49083 ==

== ENCOUNTER → 2017-07-28 | Outpatient (CLI) | payer OTHER | END | disposition home or self-care (01) | LOC: RAD 08:16 | PROC: 0W9G3ZZ Drainage of Peritoneal Cavity, Percutaneous Approach (ICD-10-PCS; principal; 2017-07-28) | DX: R18.8 Other ascites (principal) | CPT/HCPCS: 49083; P9047 ==

== ENCOUNTER → 2017-08-03 | Outpatient (CLI) | payer OTHER | END | disposition home or self-care (01) | LOC: RAD 07:18 | PROC: 0W9G3ZZ Drainage of Peritoneal Cavity, Percutaneous Approach (ICD-10-PCS; principal; 2017-08-03) | DX: R18.8 Other ascites (principal) | CPT/HCPCS: 49083; P9047 ==

== ENCOUNTER → 2017-08-06 | Outpatient (CLI) | payer OTHER ==
[~2017-08-06] VITALS: Ht 190.5 cm; Wt 107.7 kg
[2017-08-06 14:56] LABS: TYPE OF FLUID PARACENTESIS
[2017-08-06 16:03] LABS: APPEARANCE CLEAR-YELLOW; BODY FLUID EOSINOPHILS 2 % (0-25); BODY FLUID RBC'S 1000 /MM^3 (0-100); BODY FLUID WBC'S 122 /MM^3 (0-500); MONONUCLEAR WBC'S 84 %; POLYNUCLEAR WBC'S 14 % (0-25)
== END | disposition home or self-care (01) ==
LOC: RAD 11:40
PROVIDERS: Radiology Diagnostic Radiology
PROC: 0W9G3ZZ Drainage of Peritoneal Cavity, Percutaneous Approach (ICD-10-PCS; principal; 2017-08-06)
DX: R18.8 Other ascites (principal); K74.60 Unspecified cirrhosis of liver
CPT/HCPCS: 49083; 88108; 89051; P9047

== ENCOUNTER → 2017-08-11 | Outpatient (CLI) | payer OTHER | END | disposition home or self-care (01) | LOC: RAD 08-10 08:30 | PROC: 0W9G3ZZ Drainage of Peritoneal Cavity, Percutaneous Approach (ICD-10-PCS; principal; 2017-08-11) | DX: R18.8 Other ascites (principal) | CPT/HCPCS: 49083 ==

== ENCOUNTER → 2017-08-14 | Outpatient (CLI) | payer OTHER | END | disposition home or self-care (01) | LOC: RAD 08:23 | PROC: 0W9G3ZZ Drainage of Peritoneal Cavity, Percutaneous Approach (ICD-10-PCS; principal; 2017-08-14) | DX: R18.8 Other ascites (principal); K74.60 Unspecified cirrhosis of liver | CPT/HCPCS: 49083 ==

== ENCOUNTER → 2017-08-18 | Outpatient (CLI) | payer OTHER ==
[~2017-08-18] MED LIST changes: +RESTORIL15 MG PO
== END | disposition home or self-care (01) ==
LOC: RAD 08-17 08:30
PROC: 0W9G3ZZ Drainage of Peritoneal Cavity, Percutaneous Approach (ICD-10-PCS; principal; 2017-08-18)
DX: R18.8 Other ascites (principal); K74.60 Unspecified cirrhosis of liver; K92.1 Melena
CPT/HCPCS: 49083; P9047

== ENCOUNTER → 2017-08-21 | Outpatient (CLI) | payer OTHER | END | disposition home or self-care (01) | LOC: RAD 07:36 | PROC: 0W9G3ZZ Drainage of Peritoneal Cavity, Percutaneous Approach (ICD-10-PCS; principal; 2017-08-21) | DX: R18.8 Other ascites (principal); K74.60 Unspecified cirrhosis of liver | CPT/HCPCS: 49083 ==

== ENCOUNTER → 2017-08-24 | Outpatient (CLI) | payer OTHER | END | disposition home or self-care (01) | LOC: RAD 05:38 | PROC: 0W9G3ZZ Drainage of Peritoneal Cavity, Percutaneous Approach (ICD-10-PCS; principal; 2017-08-24) | DX: R18.8 Other ascites (principal); K74.60 Unspecified cirrhosis of liver | CPT/HCPCS: 49083 ==

== ENCOUNTER → 2017-08-28 | Outpatient (CLI) | payer OTHER | END | disposition home or self-care (01) | LOC: RAD 07:34 | PROC: 0W9G3ZZ Drainage of Peritoneal Cavity, Percutaneous Approach (ICD-10-PCS; principal; 2017-08-28) | DX: R18.8 Other ascites (principal); K74.60 Unspecified cirrhosis of liver | CPT/HCPCS: 49083 ==

== ENCOUNTER → 2017-09-01 | Outpatient (CLI) | payer OTHER | END | disposition home or self-care (01) | LOC: RAD 08-31 08:30 | PROC: 0W9G3ZZ Drainage of Peritoneal Cavity, Percutaneous Approach (ICD-10-PCS; principal; 2017-09-01) | DX: R18.8 Other ascites (principal); K74.60 Unspecified cirrhosis of liver | CPT/HCPCS: 49083; P9047 ==

== ENCOUNTER 2017-09-04 08:12 | Emergency (ER) | payer OTHER ==
[~2017-09-04] VITALS: Ht 190.5 cm; Wt 105.1 kg
[2017-09-04 09:30] LABS: BASOPHIL (%) 1.3 % (0-1); BASOPHIL COUNT 0.1 K/uL (0-0.1); EOSINOPHIL COUNT 0.1 K/uL (0-0.3); HEMATOCRIT 28.6 % (38.0-50.0); HEMOGLOBIN 9.6 G/DL (12.5-16.6); IMMATURE GRANULOCYTE (%) 1.3 % (0.0-0.7); LYMPHOCYTE (%) 8.9 % (15-42); LYMPHOCYTE COUNT 0.5 K/uL (1.0-2.8); MCH 31.8 PG (29.0-34.0); MCHC 33.6 G/DL (30.0-36.0); MCV 94.7 FL (86-99); MONOCYTE (%) 19.6 % (3-12); MONOCYTE COUNT 1.1 K/uL (0-0.8); NEUTROPHIL (%) 66.9 % (45-76); NEUTROPHIL COUNT 3.6 K/uL (1.8-6.4); PLATELET COUNT 58 K/uL (156-360); RBC DIS.WIDTH-CV 16.3 % (11.8-14.6); RBC DIS.WIDTH-SD 56.5 % (39-53); RED BLOOD COUNT 3.02 M/uL (4.00-5.50); WHITE BLOOD COUNT 5.4 K/uL (4.1-10.2)
[2017-09-04 09:40] LABS: INTER. NORMALIZED RATIO 1.8
[2017-09-04 09:42] LABS: PTT 32.7 SEC (25-37)
[2017-09-04 09:44] LABS: CHLORIDE 100 mEq/L (99-109); POTASSIUM 5.2 mEq/L (3.7-5.4); SODIUM 128 mEq/L (136-147)
[2017-09-04 09:45] LABS: MAGNESIUM 2.3 mg/dL (1.3-2.7)
[2017-09-04 09:47] LABS: GLUCOSE 109 mg/dL (70-99); TOTAL PROTEIN 5.4 g/dL (6.4-8.3)
[2017-09-04 09:49] LABS: TOTAL BILIRUBIN 4.2 mg/dL (0.0-1.0)
[2017-09-04 09:50] LABS: ALKALINE PHOSPHATASE 174 IU/L (3-129)
[2017-09-04 09:51] LABS: CREATININE 0.8 mg/dL (0.6-1.3); GFR ESTIMATE (CALCULATED) > 59 mL/min/ (58.99-99999)
[2017-09-04 09:52] LABS: AST (GOT) 46 IU/L (2-34); UREA NITROGEN (BUN) 17 mg/dL (9-23)
[2017-09-04 09:53] LABS: ALT (GPT) 26 IU/L (3-49)
[2017-09-04] MEDS ORDERED: ROXICODONE5 MG PO (10:43)
[2017-09-04 11:46] VITALS: BP 107/64
== END 2017-09-04 11:48 | disposition home or self-care (01) ==
LOC: EME 08:12
PROVIDERS: Emergency Medicine
DX: S20.211A Contusion of right front wall of thorax, initial encounter (principal); W01.190A Fall on same level from slipping, tripping and stumbling with subsequent striking against furniture, initial encounter; J90 Pleural effusion, not elsewhere classified; R18.8 Other ascites; K74.60 Unspecified cirrhosis of liver; Z86.73 Personal history of transient ischemic attack (TIA), and cerebral infarction without residual deficits; I25.10 Atherosclerotic heart disease of native coronary artery without angina pectoris; K80.20 Calculus of gallbladder without cholecystitis without obstruction
CPT/HCPCS: 71260; 74177; 80053; 83735; 85025; 85610; 85730; 99281; 99285; J3010

== ENCOUNTER → 2017-09-07 | Outpatient (CLI) | payer OTHER ==
[~2017-09-07] MED LIST changes: +ROXICODONE5 MG PO
[2017-09-07 08:35] LABS: TYPE OF FLUID PARACENTESIS
[2017-09-07 09:14] LABS: APPEARANCE SL. HAZY-YELLOW; BODY FLUID RBC'S < 1000 /MM^3 (0-100); BODY FLUID WBC'S 113 /MM^3 (0-500)
[2017-09-07 09:20] LABS: BODY FLUID EOSINOPHILS 2 % (0-25); MONONUCLEAR WBC'S 88 %; POLYNUCLEAR WBC'S 10 % (0-25)
== END | disposition home or self-care (01) ==
LOC: RAD 07:29
PROVIDERS: Specialist
PROC: 0W9G3ZZ Drainage of Peritoneal Cavity, Percutaneous Approach (ICD-10-PCS; principal; 2017-09-07)
DX: R18.8 Other ascites (principal); K74.60 Unspecified cirrhosis of liver
CPT/HCPCS: 49083; 88108; 89051; P9047

== ENCOUNTER 2017-09-10 07:16 | Emergency (ER) | payer OTHER ==
[~2017-09-10] VITALS: Ht 190.5 cm; Wt 105.3 kg
[2017-09-10 09:10] LABS: BASOPHIL (%) 0.8 % (0-1); EOSINOPHIL (%) 2.3 % (0-5); EOSINOPHIL COUNT 0.1 K/uL (0-0.3); HEMATOCRIT 26.7 % (38.0-50.0); HEMOGLOBIN 9.1 G/DL (12.5-16.6); IMMATURE GRANULOCYTE (%) 0.5 % (0.0-0.7); LYMPHOCYTE COUNT 0.4 K/uL (1.0-2.8); MCH 31.7 PG (29.0-34.0); MCHC 34.1 G/DL (30.0-36.0); MONOCYTE (%) 17.9 % (3-12); MONOCYTE COUNT 0.7 K/uL (0-0.8); NEUTROPHIL (%) 69.5 % (45-76); NEUTROPHIL COUNT 2.7 K/uL (1.8-6.4); RBC DIS.WIDTH-CV 16.3 % (11.8-14.6); RBC DIS.WIDTH-SD 56.3 % (39-53); RED BLOOD COUNT 2.87 M/uL (4.00-5.50); WHITE BLOOD COUNT 3.9 K/uL (4.1-10.2)
[2017-09-10 09:16] LABS: PLATELET COUNT 50 K/uL (156-360)
[2017-09-10 09:22] LABS: ALBUMIN 2.9 g/dL (3.2-4.8)
[2017-09-10 09:23] LABS: CHLORIDE 105 mEq/L (99-109); POTASSIUM 5.1 mEq/L (3.7-5.4); SODIUM 133 mEq/L (136-147)
[2017-09-10 09:25] LABS: GLUCOSE 100 mg/dL (70-99); TOTAL PROTEIN 5.1 g/dL (6.4-8.3)
[2017-09-10 09:27] LABS: TOTAL BILIRUBIN 4.4 mg/dL (0.0-1.0)
[2017-09-10 09:29] LABS: ALKALINE PHOSPHATASE 121 IU/L (3-129); GFR ESTIMATE (CALCULATED) > 59 mL/min/ (58.99-99999)
[2017-09-10 09:30] LABS: AST (GOT) 38 IU/L (2-34)
[2017-09-10 09:32] LABS: ALT (GPT) 22 IU/L (3-49); LIPASE 32 U/L (1.0-51.0)
[2017-09-10 09:39] LABS: UREA NITROGEN (BUN) 30 mg/dL (9-23)
[2017-09-10 13:46] VITALS: BP 100/64
[2017-09-10 13:52] LABS: APPEARANCE CLEAR ((CLEAR)); BILIRUBIN NEGATIVE; BLOOD NEGATIVE; COLOR YELLOW ((YELLOW)); GLUCOSE (STRIP) NEGATIVE; KETONES NEGATIVE; LEUKOCYTES NEGATIVE; NITRITE NEGATIVE; PROTEIN (STRIP) NEGATIVE; SPECIFIC GRAVITY 1.026 (1.000-1.030)
== END 2017-09-10 14:14 | disposition home or self-care (01) ==
LOC: EME 07:16
PROVIDERS: Emergency Medicine
DX: R10.9 Unspecified abdominal pain (principal); G89.11 Acute pain due to trauma; K74.60 Unspecified cirrhosis of liver; Z91.81 History of falling; J90 Pleural effusion, not elsewhere classified; K80.20 Calculus of gallbladder without cholecystitis without obstruction; K21.9 Gastro-esophageal reflux disease without esophagitis; F32.9 Major depressive disorder, single episode, unspecified; Z86.73 Personal history of transient ischemic attack (TIA), and cerebral infarction without residual deficits; Z88.5 Allergy status to narcotic agent
CPT/HCPCS: 71046; 74177; 80053; 81003; 83690; 85025; 99281; 99285; J2405; J3010; J7040

== ENCOUNTER → 2017-09-11 | Outpatient (CLI) | payer OTHER | END | disposition home or self-care (01) | LOC: RAD 06:59 | PROC: 0W9G3ZZ Drainage of Peritoneal Cavity, Percutaneous Approach (ICD-10-PCS; principal; 2017-09-11) | DX: R18.8 Other ascites (principal); K74.60 Unspecified cirrhosis of liver | CPT/HCPCS: 49083 ==

== ENCOUNTER → 2017-09-15 | Outpatient (CLI) | payer OTHER | END | disposition home or self-care (01) | LOC: RAD 12:45 | PROC: 0W9G3ZZ Drainage of Peritoneal Cavity, Percutaneous Approach (ICD-10-PCS; principal; 2017-09-15) | DX: R18.8 Other ascites (principal) | CPT/HCPCS: 49083 ==

== ENCOUNTER → 2017-09-21 | Outpatient (CLI) | payer OTHER | END | disposition home or self-care (01) | LOC: RAD 07:05 | PROC: 0W9G3ZZ Drainage of Peritoneal Cavity, Percutaneous Approach (ICD-10-PCS; principal; 2017-09-21) | DX: R18.8 Other ascites (principal); K74.60 Unspecified cirrhosis of liver | CPT/HCPCS: 49083; P9047 ==

== ENCOUNTER → 2017-09-24 | Outpatient (CLI) | payer OTHER | END | disposition home or self-care (01) | LOC: RAD 07:09 | PROC: 0W9G3ZZ Drainage of Peritoneal Cavity, Percutaneous Approach (ICD-10-PCS; principal; 2017-09-24) | DX: R18.8 Other ascites (principal); K74.60 Unspecified cirrhosis of liver | CPT/HCPCS: 49083 ==

== ENCOUNTER → 2017-09-28 | Outpatient (CLI) | payer OTHER | END | disposition home or self-care (01) | LOC: RAD 07:10 | PROC: 0W9G3ZZ Drainage of Peritoneal Cavity, Percutaneous Approach (ICD-10-PCS; principal; 2017-09-28) | DX: R18.8 Other ascites (principal); K74.60 Unspecified cirrhosis of liver | CPT/HCPCS: 49083 ==

== ENCOUNTER → 2017-10-01 | Outpatient (CLI) | payer OTHER ==
[~2017-10-01] MED LIST changes: +METOLAZONE5 MG PO
== END | disposition home or self-care (01) ==
LOC: RAD 07:15
PROC: 0W9G3ZZ Drainage of Peritoneal Cavity, Percutaneous Approach (ICD-10-PCS; principal; 2017-10-01)
DX: R18.8 Other ascites (principal); K74.60 Unspecified cirrhosis of liver; K92.1 Melena; R79.0 Abnormal level of blood mineral
CPT/HCPCS: 49083

== ENCOUNTER → 2017-10-05 | Outpatient (CLI) | payer OTHER ==
[2017-10-05 08:45] LABS: TYPE OF FLUID PARACENTESIS
[2017-10-05 09:48] LABS: APPEARANCE SL.HAZY/YELLOW; BODY FLUID EOSINOPHILS 0 % (0-25); BODY FLUID RBC'S 0 /MM^3 (0-100); BODY FLUID WBC'S 147 /MM^3 (0-500); MONONUCLEAR WBC'S 93 %; POLYNUCLEAR WBC'S 7 % (0-25)
== END | disposition home or self-care (01) ==
LOC: RAD 07:10
PROVIDERS: Specialist
PROC: 0W9G3ZZ Drainage of Peritoneal Cavity, Percutaneous Approach (ICD-10-PCS; principal; 2017-10-05)
DX: R18.8 Other ascites (principal); K74.60 Unspecified cirrhosis of liver
CPT/HCPCS: 49083; 88108; 89051

== ENCOUNTER → 2017-10-08 | Outpatient (CLI) | payer OTHER | END | disposition home or self-care (01) | LOC: RAD 08:30 | PROC: 0W9G3ZZ Drainage of Peritoneal Cavity, Percutaneous Approach (ICD-10-PCS; principal; 2017-10-08) | DX: R18.8 Other ascites (principal); K74.60 Unspecified cirrhosis of liver | CPT/HCPCS: 49083 ==

== ENCOUNTER → 2017-10-12 | Outpatient (CLI) | payer OTHER | END | disposition home or self-care (01) | LOC: RAD 07:43 | PROC: 0W9G3ZZ Drainage of Peritoneal Cavity, Percutaneous Approach (ICD-10-PCS; principal; 2017-10-12) | DX: R18.8 Other ascites (principal) | CPT/HCPCS: 49083 ==

== ENCOUNTER → 2017-10-15 | Outpatient (CLI) | payer OTHER ==
[~2017-10-15] MED LIST changes: -FUROSEMIDE80 MG PO; +LASIX40 MG PO
== END | disposition home or self-care (01) ==
LOC: RAD 08:30
PROC: 0W9G3ZZ Drainage of Peritoneal Cavity, Percutaneous Approach (ICD-10-PCS; principal; 2017-10-15)
DX: R18.8 Other ascites (principal)
CPT/HCPCS: 49083

== ENCOUNTER 2017-10-19 21:48 | Inpatient (IN) | payer OTHER ==
[~2017-10-19] VITALS: Ht 190.5 cm; Wt 95.6 kg
[2017-10-19 22:41] LABS: HEMATOCRIT 28.4 % (38.0-50.0); HEMOGLOBIN 9.8 G/DL (12.5-16.6); MCHC 34.5 G/DL (30.0-36.0); MCV 89.9 FL (86-99); PLATELET COUNT 65 K/uL (156-360); RBC DIS.WIDTH-CV 18.2 % (11.8-14.6); RBC DIS.WIDTH-SD 60.8 % (39-53); RED BLOOD COUNT 3.16 M/uL (4.00-5.50); WHITE BLOOD COUNT 7.3 K/uL (4.1-10.2)
[2017-10-19 22:52] LABS: ALBUMIN 2.6 g/dL (3.2-4.8); CHLORIDE 90 mEq/L (99-109); POTASSIUM 4.3 mEq/L (3.7-5.4); SODIUM 125 mEq/L (136-147)
[2017-10-19 22:55] LABS: GLUCOSE 106 mg/dL (70-99); TOTAL PROTEIN 5.3 g/dL (6.4-8.3)
[2017-10-19 22:56] LABS: INTER. NORMALIZED RATIO 2.2; TOTAL BILIRUBIN 7.4 mg/dL (0.0-1.0)
[2017-10-19 22:58] LABS: ALKALINE PHOSPHATASE 149 IU/L (3-129); CREATININE 0.9 mg/dL (0.6-1.3); GFR ESTIMATE (CALCULATED) > 59 mL/min/ (58.99-99999)
[2017-10-19 22:59] LABS: UREA NITROGEN (BUN) 19 mg/dL (9-23)
[2017-10-19 23:00] LABS: AST (GOT) 39 IU/L (2-34); DIRECT BILIRUBIN 2.4 mg/dL (0.0-0.3)
[2017-10-19 23:01] LABS: ALT (GPT) 28 IU/L (3-49)
[2017-10-19 23:02] LABS: LIPASE 45 U/L (1.0-51.0)
[2017-10-19 23:07] LABS: TROP-I INTERPRETATION NEGATIVE; TROPONIN-I < 0.01 ng/mL (0.0-0.30)
[2017-10-20] VITALS (8 sets, daily range): BP systolic 99–127; BP diastolic 57–68
[2017-10-20 01:23] LABS: CHLORIDE 90 mEq/L (99-109); POTASSIUM 4.3 mEq/L (3.7-5.4); SODIUM 124 mEq/L (136-147)
[2017-10-20 01:24] LABS: GLUCOSE 100 mg/dL (70-99)
[2017-10-20 01:28] LABS: CREATININE 0.8 mg/dL (0.6-1.3); GFR ESTIMATE (CALCULATED) > 59 mL/min/ (58.99-99999)
[2017-10-20 01:29] LABS: UREA NITROGEN (BUN) 19 mg/dL (9-23)
[2017-10-20 06:46] LABS: HEMATOCRIT 28.4 % (38.0-50.0); HEMOGLOBIN 9.4 G/DL (12.5-16.6); MCHC 33.1 G/DL (30.0-36.0); MCV 90.7 FL (86-99); PLATELET COUNT 58 K/uL (156-360); RED BLOOD COUNT 3.13 M/uL (4.00-5.50); WHITE BLOOD COUNT 6.4 K/uL (4.1-10.2)
[2017-10-20 07:04] LABS: INTER. NORMALIZED RATIO 2.3
[2017-10-20 07:19] LABS: CHLORIDE 89 MEQ/L (99-109); CREATININE 0.8 MG/DL (0.6-1.3); GFR ESTIMATE (CALCULATED) > 59 mL/min/ (58.99-99999); GLUCOSE 113 mg/dL (70-99); POTASSIUM 4.2 MEQ/L (3.7-5.4); SODIUM 124 MEQ/L (136-147); UREA NITROGEN (BUN) 18 mg/dL (9-23)
[2017-10-20 10:57] LABS: TYPE OF FLUID PLEURAL
[2017-10-20 11:44] LABS: APPEARANCE AMBER-CLOUDY; BODY FLUID EOSINOPHILS 0 % (0-25); BODY FLUID RBC'S 14000 /MM^3 (0-100); BODY FLUID WBC'S 120 /MM^3 (0-500); MONONUCLEAR WBC'S 94 %; POLYNUCLEAR WBC'S 6 % (0-25)
[2017-10-20 11:59] LABS: BODY FLUID GLUCOSE 127 MG/DL; BODY FLUID LDH < 25 IU/L; BODY FLUID PROTEIN < 3.0 G/DL
[2017-10-20 21:06] LABS: APPEARANCE CLEAR ((CLEAR)); BILIRUBIN NEGATIVE; BLOOD NEGATIVE; COLOR YELLOW ((YELLOW)); GLUCOSE (STRIP) NEGATIVE; KETONES NEGATIVE; LEUKOCYTES NEGATIVE; NITRITE NEGATIVE; PROTEIN (STRIP) NEGATIVE; SPECIFIC GRAVITY 1.006 (1.000-1.030); UCUL ADDED? NO
[2017-10-21 04:02] VITALS: BP 105/57
[2017-10-21 06:51] LABS: BASOPHIL (%) 1.1 % (0-1); BASOPHIL COUNT 0.1 K/uL (0-0.1); EOSINOPHIL (%) 2.8 % (0-5); EOSINOPHIL COUNT 0.1 K/uL (0-0.3); HEMATOCRIT 24.4 % (38.0-50.0); HEMOGLOBIN 8.3 G/DL (12.5-16.6); IMMATURE GRANULOCYTE (%) 0.6 % (0.0-0.7); LYMPHOCYTE (%) 12.5 % (15-42); LYMPHOCYTE COUNT 0.6 K/uL (1.0-2.8); MCH 30.4 PG (29.0-34.0); MCV 89.4 FL (86-99); MONOCYTE (%) 24.3 % (3-12); MONOCYTE COUNT 1.1 K/uL (0-0.8); NEUTROPHIL (%) 58.7 % (45-76); NEUTROPHIL COUNT 2.7 K/uL (1.8-6.4); NRBC (%) 0.4 /100 WBC (0-0); RBC DIS.WIDTH-CV 18.2 % (11.8-14.6); RBC DIS.WIDTH-SD 58.6 % (39-53); RED BLOOD COUNT 2.73 M/uL (4.00-5.50); WHITE BLOOD COUNT 4.7 K/uL (4.1-10.2)
[2017-10-21 07:10] LABS: CHLORIDE 90 MEQ/L (99-109); CREATININE 0.9 MG/DL (0.6-1.3); GFR ESTIMATE (CALCULATED) > 59 mL/min/ (58.99-99999); GLUCOSE 109 mg/dL (70-99); MAGNESIUM 1.8 mg/dl (1.3-2.7); PHOSPHORUS 2.7 mg/dL (2.5-4.9); POTASSIUM 4.3 MEQ/L (3.7-5.4); SODIUM 124 MEQ/L (136-147); UREA NITROGEN (BUN) 16 mg/dL (9-23)
[2017-10-21 07:28] LABS: HEMATOLOGY COMMENT 1 SN; IMM.PLATELET FRACTION 1.4 (1-7); PLAT.SUFFICIENCY DECREASED; PLATELET COUNT 42 K/uL (156-360)
[2017-10-21 07:34] VITALS: BP 103/59
[2017-10-21 09:13] LABS: ALBUMIN 2.4 G/DL (3.2-4.8); ALT (GPT) 21 IU/L (3-49); AST (GOT) 31 IU/L (2-34); DIRECT BILIRUBIN 2.3 mg/dL (0.0-0.3); TOTAL BILIRUBIN 8.2 MG/DL (0.0-1.0)
[2017-10-21 09:18] LABS: ALKALINE PHOSPHATASE 90 IU/L (3-129); TOTAL PROTEIN 4.4 G/DL (6.4-8.3)
[2017-10-21 11:13] VITALS: BP 103/57
[2017-10-21 15:26] VITALS: BP 93/57
[2017-10-21 19:28] VITALS: BP 104/58
[2017-10-21 23:30] VITALS: BP 93/53
[2017-10-22 04:03] VITALS: BP 96/57
[2017-10-22 05:59] LABS: HEMATOCRIT 25.3 % (38.0-50.0); HEMOGLOBIN 8.6 G/DL (12.5-16.6); MCH 30.3 PG (29.0-34.0); MCV 89.1 FL (86-99); RBC DIS.WIDTH-CV 18.3 % (11.8-14.6); RBC DIS.WIDTH-SD 59.4 % (39-53); RED BLOOD COUNT 2.84 M/uL (4.00-5.50)
[2017-10-22 06:02] LABS: INTER. NORMALIZED RATIO 2.3
[2017-10-22 06:27] LABS: ALBUMIN 2.3 G/DL (3.2-4.8); ALKALINE PHOSPHATASE 106 IU/L (3-129); ALT (GPT) 22 IU/L (3-49); AST (GOT) 30 IU/L (2-34); CHLORIDE 94 MEQ/L (99-109); CREATININE 0.9 MG/DL (0.6-1.3); GFR ESTIMATE (CALCULATED) > 59 mL/min/ (58.99-99999); GLUCOSE 114 mg/dL (70-99); POTASSIUM 4.1 MEQ/L (3.7-5.4); SODIUM 130 MEQ/L (136-147); TOTAL PROTEIN 4.5 G/DL (6.4-8.3); UREA NITROGEN (BUN) 13 mg/dL (9-23)
[2017-10-22 06:28] LABS: TOTAL BILIRUBIN 6.1 MG/DL (0.0-1.0)
[2017-10-22 06:53] LABS: ABS NEUTROPHIL COUNT 2.9; ACANTHOCYTES 1+; ANISOCYTOSIS 2+; BASOPHILS 2.7 %; BURR CELLS 2+; EOSINOPHIL ABS CT 0; EOSINOPHILS 0.9 % (0-5.0); LYMPHOCYTES 9.2 % (15.0-45.0); MACROCYTES 2+; MONOCYTES 14.7 % (0-9.0); PLAT.SUFFICIENCY VERY DECREASED; POIKILOCYTOSIS 2+; SCHISTOCYTES 1+; SEG.NEUTROPHILS 72.5 % (46.0-76.0); TARGET CELLS 1+
[2017-10-22 07:34] VITALS: BP 107/62
[2017-10-22 09:31] LABS: IMM.PLATELET FRACTION 1.3 (1-7); PLATELET COUNT 43 K/uL (156-360)
[2017-10-22 11:38] VITALS: BP 94/54
[2017-10-22 16:07] VITALS: BP 93/54
[2017-10-22 20:22] VITALS: BP 95/50
[2017-10-22 20:30] LABS: BODY FLUID PH 7.8 (())
[2017-10-22 23:22] VITALS: BP 102/58
[2017-10-23 04:12] VITALS: BP 99/58
[2017-10-23 06:48] LABS: BASOPHIL (%) 1.4 % (0-1); BASOPHIL COUNT 0.1 K/uL (0-0.1); EOSINOPHIL (%) 3.5 % (0-5); EOSINOPHIL COUNT 0.2 K/uL (0-0.3); HEMATOCRIT 26.8 % (38.0-50.0); HEMOGLOBIN 8.7 G/DL (12.5-16.6); IMMATURE GRANULOCYTE (%) 0.5 % (0.0-0.7); LYMPHOCYTE COUNT 0.6 K/uL (1.0-2.8); MCH 29.6 PG (29.0-34.0); MCHC 32.5 G/DL (30.0-36.0); MCV 91.2 FL (86-99); MONOCYTE (%) 20.5 % (3-12); MONOCYTE COUNT 0.9 K/uL (0-0.8); NEUTROPHIL (%) 60.1 % (45-76); NEUTROPHIL COUNT 2.6 K/uL (1.8-6.4); RBC DIS.WIDTH-CV 18.6 % (11.8-14.6); RBC DIS.WIDTH-SD 61.8 % (39-53); RED BLOOD COUNT 2.94 M/uL (4.00-5.50); WHITE BLOOD COUNT 4.3 K/uL (4.1-10.2)
[2017-10-23 06:55] LABS: INTER. NORMALIZED RATIO 2.2
[2017-10-23 07:11] LABS: ALBUMIN 2.4 G/DL (3.2-4.8); ALKALINE PHOSPHATASE 114 IU/L (3-129); ALT (GPT) 22 IU/L (3-49); AST (GOT) 29 IU/L (2-34); CHLORIDE 95 MEQ/L (99-109); CREATININE 0.9 MG/DL (0.6-1.3); GFR ESTIMATE (CALCULATED) > 59 mL/min/ (58.99-99999); GLUCOSE 107 mg/dL (70-99); POTASSIUM 4.2 MEQ/L (3.7-5.4); SODIUM 130 MEQ/L (136-147); TOTAL BILIRUBIN 6.2 MG/DL (0.0-1.0); TOTAL PROTEIN 4.6 G/DL (6.4-8.3); UREA NITROGEN (BUN) 11 mg/dL (9-23)
[2017-10-23 08:01] VITALS: BP 93/55
[2017-10-23 08:46] LABS: IMM.PLATELET FRACTION 1.3 (1-7); PLAT.SUFFICIENCY DECREASED; PLATELET COUNT 46 K/uL (156-360)
[2017-10-23 12:05] VITALS: BP 93/58
[2017-10-23 16:11] VITALS: BP 96/52
[2017-10-23 20:03] VITALS: BP 89/51
[2017-10-23 23:44] VITALS: BP 100/55
[2017-10-24 04:00] VITALS: BP 89/54
[2017-10-24 07:34] LABS: BASOPHIL (%) 0.9 % (0-1); EOSINOPHIL (%) 3.8 % (0-5); EOSINOPHIL COUNT 0.2 K/uL (0-0.3); HEMATOCRIT 26.9 % (38.0-50.0); HEMOGLOBIN 8.8 G/DL (12.5-16.6); IMMATURE GRANULOCYTE (%) 0.4 % (0.0-0.7); LYMPHOCYTE (%) 12.6 % (15-42); LYMPHOCYTE COUNT 0.6 K/uL (1.0-2.8); MCH 29.6 PG (29.0-34.0); MCHC 32.7 G/DL (30.0-36.0); MCV 90.6 FL (86-99); MONOCYTE (%) 19.9 % (3-12); MONOCYTE COUNT 0.9 K/uL (0-0.8); NEUTROPHIL (%) 62.4 % (45-76); NEUTROPHIL COUNT 2.9 K/uL (1.8-6.4); RBC DIS.WIDTH-CV 18.6 % (11.8-14.6); RBC DIS.WIDTH-SD 61.7 % (39-53); RED BLOOD COUNT 2.97 M/uL (4.00-5.50); WHITE BLOOD COUNT 4.7 K/uL (4.1-10.2)
[2017-10-24 07:36] LABS: INTER. NORMALIZED RATIO 2.1
[2017-10-24 08:08] LABS: ALBUMIN 2.4 G/DL (3.2-4.8); ALKALINE PHOSPHATASE 118 IU/L (3-129); ALT (GPT) 23 IU/L (3-49); AST (GOT) 33 IU/L (2-34); CHLORIDE 94 MEQ/L (99-109); GFR ESTIMATE (CALCULATED) > 59 mL/min/ (58.99-99999); GLUCOSE 120 mg/dL (70-99); POTASSIUM 4.3 MEQ/L (3.7-5.4); SODIUM 130 MEQ/L (136-147); TOTAL BILIRUBIN 6.1 MG/DL (0.0-1.0); TOTAL PROTEIN 4.7 G/DL (6.4-8.3); UREA NITROGEN (BUN) 11 mg/dL (9-23)
[2017-10-24 08:09] LABS: ANISOCYTOSIS 2+; BURR CELLS 1+; IMM.PLATELET FRACTION 1.6 (1-7); MACROCYTES 2+; PLAT.SUFFICIENCY VERY DECREASED; PLATELET COUNT 46 K/uL (156-360); POLYCHROMASIA 1+
[2017-10-24 08:30] VITALS: BP 95/51
[2017-10-24 11:50] VITALS: BP 102/53
[2017-10-24] MEDS ORDERED: ZOFRAN4 MG PO (13:24)
[2017-10-24] MEDS ORDERED: ROXICODONE5 MG PO (13:38)
== END 2017-10-24 15:38 | disposition hospice, home (50) | DRG 433 ==
LOC: EME → EDBD 21:48 → EME 21:48 → 3EAST 10-20 00:07 → EDOF 10-20 00:07 → ENRESERV 10-20 00:14 → 3EAST 10-20 01:22
PROVIDERS: Emergency Medicine; Hospitalist; Internal Medicine; Internal Medicine Nephrology
PROC: 0W9B3ZZ Drainage of Left Pleural Cavity, Percutaneous Approach (ICD-10-PCS; principal; 2017-10-20)
DX: K74.69 Other cirrhosis of liver (principal); J90 Pleural effusion, not elsewhere classified; R18.8 Other ascites; E87.1 Hypo-osmolality and hyponatremia; T50.0X5A Adverse effect of mineralocorticoids and their antagonists, initial encounter; Z66 Do not resuscitate; K21.9 Gastro-esophageal reflux disease without esophagitis; D68.9 Coagulation defect, unspecified; E88.09 Other disorders of plasma-protein metabolism, not elsewhere classified; I95.9 Hypotension, unspecified; D61.818 Other pancytopenia; K29.60 Other gastritis without bleeding; F32.9 Major depressive disorder, single episode, unspecified; Z86.73 Personal history of transient ischemic attack (TIA), and cerebral infarction without residual deficits; Z88.5 Allergy status to narcotic agent; Z76.82 Awaiting organ transplant status
CPT/HCPCS: 36415; 71045; 71250; 76705; 76942; 80048; 80048 91; 80053; 80076; 81003; 82140; 82436; 82533 91; 82945; 83615 91; 83690; 83735; 83930; 83935; 83986 90; 84100; 84133; 84157; 84300; 84484; 85025; 85027; 85610; 85730; 87070; 87075; 87116; 87205; 87206; 88108; 88305; 89051; 99281; 99285; A6214; J2405; J3430; J7030; P9047